=== PATIENT | female | born 1945 ===

== ENCOUNTER → 2020-08-28 14:42 | Outpatient (CLI) | payer OTHER ==
[~2020-08-28 14:42] MED LIST: ABILIFY2 MG PO; AMBIEN10 MG PO; CARDIZEM CD180 M1 PO; DEPAKOTE ER250 MG PO; NORVASC5 MG PO; PLAVIX75 MG PO; SYNTHROID175 MCG PO; WELLBUTRIN XL300 MG PO; ZOCOR20 MG PO
== END | disposition home or self-care (01) ==
LOC: LAB 14:42
PROVIDERS: ATTEND Internal Medicine
DX: E03.8 Other specified hypothyroidism (principal); I10 Essential (primary) hypertension; Z01.810 Encounter for preprocedural cardiovascular examination; E78.89 Other lipoprotein metabolism disorders; E55.9 Vitamin D deficiency, unspecified; N39.0 Urinary tract infection, site not specified; M46.97 Unspecified inflammatory spondylopathy, lumbosacral region; M46.47 Discitis, unspecified, lumbosacral region; M48.02 Spinal stenosis, cervical region; M48.07 Spinal stenosis, lumbosacral region; Z01.818 Encounter for other preprocedural examination; Z20.828 Contact with and (suspected) exposure to other viral communicable diseases

== ENCOUNTER 2020-09-01 07:00 | Day surgery (SDC) | payer OTHER | END 2020-09-01 11:15 | disposition home or self-care (01) | LOC: CIR.AMB 07:00 | PROVIDERS: ATTEND Anesthesiology Pain Medicine | DX: M48.061 Spinal stenosis, lumbar region without neurogenic claudication (principal); Z20.828 Contact with and (suspected) exposure to other viral communicable diseases ==